=== PATIENT | female | born 1990 | race Caucasian/White ===

== ENCOUNTER 2019-06-05 23:53 | Emergency (ER) | payer BC ==
[~2019-06-05] VITALS: Ht 177.8 cm; Wt 161.0 kg
[2019-06-05 23:55] VITALS: BP 147/93
[2019-06-06] MEDS ORDERED: BCP
[2019-06-06] MEDS ORDERED: HYDR25TA6 PO
[2019-06-06] MEDS ORDERED: LOSA50TA14 PO
[2019-06-06 00:48] LABS: ALBUMIN 3.6 g/dL (3.4-5.0); ANION GAP 6 mmol/L (5-15); CALCIUM 8.7 mg/dL (8.5-10.1); CHLORIDE 104 mmol/L (98-107)
[2019-06-06 00:51] LABS: BASOPHILS # (AUTO) 0.05 x10^3/uL (0-0.1); BASOPHILS % (AUTO) 1 % (0-1); EOSINOPHILS # (AUTO) 0.31 x10^3/uL (0-0.4); EOSINOPHILS % (AUTO) 4 % (1-7); LYMPHOCYTES # (AUTO) 2.86 x10^3/uL (1-3.4); LYMPHOCYTES % (AUTO) 33 % (22-44); MD NO; MEAN CORPUSCULAR HEMOGLOBIN 29.2 pg (27.0-34.8); MEAN CORPUSCULAR HGB CONC 32.8 g/dL (32.4-35.8); MEAN CORPUSCULAR VOLUME 88.8 fL (80-100); MEAN PLATELET VOLUME 8.8 fL (7.4-10.4); MONOCYTES # (AUTO) 0.62 x10^3/uL (0.2-0.8); MONOCYTES % (AUTO) 7 % (2-9); NEUTROPHILS # (AUTO) 4.71 x10^3/uL (1.8-6.8); NEUTROPHILS % (AUTO) 55 % (42-75); PLATELET COUNT 258 x10^3/uL (130-400); RED BLOOD COUNT 4.95 x10^6/uL (3.82-5.3); RED CELL DISTRIBUTION WIDTH 14.4 % (9.6-15.2)
[2019-06-06 00:52] LABS: TROPONIN I < 0.015 ng/mL (0.000-0.045)
== END 2019-06-06 02:15 | disposition home or self-care (01) ==
LOC: ED 06-06 02:05
DX: R00.2 Palpitations (principal); R07.89 Other chest pain; I10 Essential (primary) hypertension
CPT/HCPCS: 36415; 71045; 80048; 82040; 84484; 85025; 93005; 99284

== ENCOUNTER 2020-04-02 14:30 | Emergency (ER) | payer BC ==
[~2020-04-02] VITALS: Ht 177.8 cm; Wt 165.7 kg
[~2020-04-02 14:30] MED LIST: BCP; HYDR25TA6 PO; LOSA50TA14 PO
--- NOTE | 2020-04-02 14:59 | NUR ---
PT CAME IN CO OF CP AND NAUSEA THAT STARTED A COUPLE DAYS AGO. SHE DESCRIBES IT A CRUSHING PAIN. PT STATES HER NAUSEA GETS WORSE AFTER SHE EATS. PT IS RESTING IN [facility]. EKG COMPLETE. CONNECTED TO MONITORING EQUIPMENT.
[2020-04-02] MEDS ORDERED: KETOROLAC 30 MG/1 ML IM ONE (15:00)
[2020-04-02] MEDS ORDERED: KETOROLAC 30 MG/1 ML ONE (15:01)
[2020-04-02 15:26] LABS: ALBUMIN 3.6 g/dL (3.4-5.0); ANION GAP 3 mmol/L (5-15); CALCIUM 9.1 mg/dL (8.5-10.1); CHLORIDE 106 mmol/L (98-107); CREATININE 0.84 mg/dL (0.55-1.02)
[2020-04-02 15:41] VITALS: BP 134/70
--- NOTE | 2020-04-02 15:41 | NUR ---
PT RESTING IN [facility]. REPORTS PAIN IMRPOVEMENT
== END 2020-04-02 16:42 | disposition home or self-care (01) ==
LOC: ED 16:05
DX: R07.89 Other chest pain (principal); R11.0 Nausea; I10 Essential (primary) hypertension
CPT/HCPCS: 36415; 71046; 80048; 82040; 84703; 85379; 93005; 96372; 99285; J1885